=== PATIENT | female | born 1935 | race Caucasian/White ===

== ENCOUNTER 2018-06-12 14:09 | Inpatient (IN) | payer MEDICARE, OTHER ==
[~2018-06-12] VITALS: Ht 152.4 cm; Wt 81.6 kg
[~2018-06-12 14:09] MED LIST: ACET500T68 PO; AMMO1SOL2 MC; BETA15CR3 TP; BUDE3CAP15 PO; BUME1TAB3 PO; DICL100G18 TP; DIPH1TAB PO; ERGO500027 PO; ESTR30CR VG; FLUT16SP NS; HYDR30CR61 TP; LIDO700A39 TP; LORA10TA3 PO; MORP4SYR SL; MULT1TAB52 PO; NYST15PO9 TP; SERT50TA PO; SIME80TA14 PO; SPIR100T4 PO
[2018-06-12] MEDS: IV DEXTROSE 5% - 0.9 % NACL 1,000 ML IV SCH ×2 (15:45→22:34)
[2018-06-12 15:47] VITALS: BP 187/66
[2018-06-12] MEDS ORDERED: DICLOFENAC SODIUM 1% TOPICAL GEL 100GM TUBE. TP PRN (16:15)
[2018-06-12] MEDS ORDERED: TRIAMCINOLONE ACETONIDE 0.1% TOPICAL CREAM 15GM TUBE. TP SCH (16:15)
[2018-06-12] MEDS ORDERED: NYSTATIN TOPICAL POWDER 15GM BOTTLE. TP PRN (16:15)
[2018-06-12] MEDS ORDERED: LOPERAMIDE 2 MG CAPSULE PO PRN (16:15)
[2018-06-12] MEDS ORDERED: ACETAMINOPHEN 500 MG TABLET PO PRN (16:15)
[2018-06-12] MEDS ORDERED: VITS A & D/LANOLIN TOPICAL OINTMENT 56GM TUBE. TP PRN (16:30)
[2018-06-12 17:59] LABS: BASO % 0 % (0-3); EOS % 0 % (0-3); HEMATOCRIT 26.8 % (36.0-47.0); HEMOGLOBIN 8.3 g/dL (12.0-15.5); LYMPH # 1.1 x10^3/uL (1.0-4.8); LYMPH % 16 % (24-48); MEAN CORPUSCULAR HEMOGLOBIN 27 pg (25-35); MEAN CORPUSCULAR HGB CONC 31 g/dL (31-37); MEAN CORPUSCULAR VOLUME 88 fL (79-100); MONO # 0.3 x10^3/uL (0.0-1.1); MONO % 5 % (0-9); NEUT # 5.6 x10^3uL (1.8-7.7); NEUT % 79 % (31-73); PLATELET COUNT 161 x10^3/uL (140-400); RED BLOOD COUNT 3.06 x10^6/uL (3.50-5.40); RED CELL DISTRIBUTION WIDTH 25.8 % (11.5-14.5); WHITE BLOOD COUNT 7.1 x10^3/uL (4.0-11.0)
[2018-06-12] MEDS ORDERED: LINEZOLID 600 MG TABLET PO ONE (18:00)
[2018-06-12 18:13] LABS: ALBUMIN 2.7 g/dL (3.4-5.0); ALBUMIN/GLOBULIN RATIO 0.8 (1.0-1.7); CALCIUM 8.4 mg/dL (8.5-10.1); CREATININE 0.9 mg/dL (0.6-1.0); GFR 59.8; POTASSIUM 3.6 mmol/L (3.5-5.1); TOTAL BILIRUBIN 0.5 mg/dL (0.2-1.0)
[2018-06-12 18:22] LABS: PLT ESTIMATE ADEQUATE (ADEQUATE)
[2018-06-12 18:23] LABS: ANISOCYTOSIS MARKED; HYPOCHROMIA SLIGHT; POIKILOCYTOSIS SLIGHT; POLYCHROMASIA SLIGHT; TOXIC VACUOLATION SLIGHT
[2018-06-12] MEDS: RIVAROXABAN 15 MG TABLET. PO SCH (18:37)
[2018-06-12] MEDS ORDERED: cefTRIAXone IM 250 MG VIAL IM ONE (19:15)
[2018-06-12 19:38] VITALS: BP 128/62
[2018-06-12] MEDS ORDERED: cefTRIAXone IM 1 GM VIAL IM ONE (20:00)
[2018-06-12] MEDS ORDERED: AZITHROMYCIN 250 MG TABLET. PO ONE (20:30)
[2018-06-12] MEDS: metroNIDAZOLE 500 MG TABLET PO SCH (20:50)
[2018-06-12] MEDS: GABAPENTIN 300 MG CAPSULE. PO SCH (20:50)
[2018-06-12] MEDS: LACTOBACILLUS RHAMNOSUS GG 1 CAPSULE. PO SCH (20:50)
[2018-06-12] MEDS: ASCORBIC ACID 500 MG TABLET PO SCH ×2 (20:50→21:00)
[2018-06-12] MEDS: PATCH REMOVAL. MC SCH (20:51)
[2018-06-12] MEDS: HYDROCORTISONE SOD SUCC/PF 100 MG/2 ML VIAL. IV SCH (22:27)
[2018-06-12 23:21] VITALS: BP 102/60
[2018-06-12] MEDS: IV DEXTROSE 5% 1,000 ML IV SCH (23:24)
[2018-06-13 03:21] VITALS: BP_SYST 102; BP_SYST 154; BP_DIAS 57; BP_DIAS 58
[2018-06-13] MEDS: HYDROCORTISONE SOD SUCC/PF 100 MG/2 ML VIAL. IV SCH ×3 (05:43→20:49)
[2018-06-13] MEDS: metroNIDAZOLE 500 MG TABLET PO SCH (05:45)
[2018-06-13 07:00] VITALS: BP 136/61
[2018-06-13] MEDS ORDERED: IV DEXTROSE 5% 1,000 ML IV SCH (08:15)
[2018-06-13] MEDS ORDERED: FLUTICASONE 50MCG/NASAL SPRAY 16GM BOTTLE. NS PRN (08:15)
[2018-06-13] MEDS ORDERED: ONDANSETRON ODT 4 MG TAB.RAPDIS. PO PRN (08:15)
[2018-06-13] MEDS ORDERED: NYSTATIN 100,000 UNIT/GM TOPICAL CREAM 15GM TUBE. TP PRN (08:15)
[2018-06-13] MEDS ORDERED: TRIAMCINOLONE ACETONIDE 0.1% TOPICAL CREAM 15GM TUBE. TP PRN (08:15)
[2018-06-13] MEDS ORDERED: LOPERAMIDE 2 MG CAPSULE PO PRN (08:15)
[2018-06-13] MEDS ORDERED: ACETAMINOPHEN 500 MG TABLET PO PRN (08:15)
[2018-06-13] MEDS ORDERED: LACTOBACILLUS RHAMNOSUS GG 1 CAPSULE. PO SCH (09:00)
[2018-06-13] MEDS ORDERED: FLUTICASONE 50MCG/NASAL SPRAY 16GM BOTTLE. NS SCH (09:00)
[2018-06-13] MEDS: POLYETHYLENE GLYCOL 3350 17 GM PACKET. PO SCH ×2 (09:00→11:42)
[2018-06-13] MEDS ORDERED: CHOLECALCIFEROL (VITAMIN D3) 1,000 UNIT TABLET PO SCH (09:00)
[2018-06-13] MEDS ORDERED: POLYETHYLENE GLYCOL 3350 17 GM PACKET. PO SCH (09:00)
--- NOTE | 2018-06-13 10:09 | HP ---
ADMIT DATE: 06/12/2018 HISTORY OF PRESENT ILLNESS: The patient is an 83-year-old female patient who was transferred from [facility] where she was admitted recently with altered mental status, poor appetite, and markedly swollen upper extremities that are erythematous. She has a skin tear in the dorsal aspect of her hand also. She has also bilateral gluteal decubitus ulcer with marked skin laceration. She was actually admitted on 06/02/2018. At that time, she was diagnosed with bilateral lower extremity cellulitis, urinary tract infection and also questionable healthcare-associated pneumonia. She did eventually grew more than 100,000 colony forming units per mL of Proteus mirabilis that was sensitive to Levaquin. She was treated with oral Levaquin and initially she was on Zyvox and meropenem as SHE IS ALLERGIC TO PENICILLIN AND MULTIPLE OTHER ANTIBIOTICS and eventually she was discharged back to [facility] on 06/09/2018 to continue with oral antibiotic in the form of Levaquin and Zyvox. Unfortunately, she came back within 2 days with altered mental status, poor appetite and markedly swollen upper extremities, probably bilateral upper extremity cellulitis. She also has a skin tear on the dorsal aspect of her right hand and bilateral gluteal decubitus ulcer. We tried to put peripheral IV midline or PICC line and we could not really get any vascular access and therefore the patient was [facility] with the aim to consult the nutrition services worker to put a central line and to consult the Infectious Disease to assist with the management as well as the wound care team. PAST MEDICAL HISTORY: Significant for longstanding Crohn's disease, history of deep vein thrombosis and pulmonary embolism, depression, recurrent UTIs and degenerative joint disease. She is known to have L4 compression fracture and was at one time admitted to [facility] where she was not found to be suitable for vertebroplasty by the neurosurgeon as well as the interventional radiologist. She has a history of syncopal episodes for which she was admitted to [facility] and was found to be extremely dehydrated. On her last admission to [facility], she also went into acute hypoxic hypercapnic respiratory failure that required BiPAP from which she did actually very well. PAST SURGICAL HISTORY: Significant for appendectomy, cholecystectomy, partial colectomy, colonoscopy and biopsy. ALLERGIES: SHE IS ALLERGIC TO CIPRO, ASPIRIN, CEFDINIR, PENICILLIN, SULFA AND TRAMADOL. FAMILY HISTORY: Positive for hypertension and CVA in her mother and bone cancer in her father. SOCIAL HISTORY: She is currently a resident at [facility]. She has 2 sons, one of them lives here and the other lives in [place], [place]. She does not smoke, drink alcohol or use any recreational drugs. She is mostly bed bound and chair bound. She was transferred to [facility] to continue on following medications: She is on loratadine 10 mg once a day, spironolactone 100 mg once a day, diclofenac sodium topically every 6 hours, morphine sulfate 1-2 mg sublingually every 4 hours as needed, acetaminophen 650 mg every 6 hours, sertraline 50 mg daily, bumetanide half a tablet 0.5 mg twice a day, Flonase 2 sprays to each nostril once a day, diphenoxylate-atropine or Lomotil tablet q.i.d., simethicone 80 mg every 6 hours, Entocort 9 mg daily, conjugated estrogen Premarin vaginally 3 times per week, nystatin powder applied topically twice a day. She is on betamethasone, propylene glycol applied topically twice a day for itching, hydrocortisone for Anusol cream applied topically daily. She is on Lidoderm patch applied topically once a day, vitamin D 50,000 international units once a week, multivitamin 1 tablet once a day, ammonium lactate applied topically every 8 hours. PHYSICAL EXAMINATION: GENERAL: When I examined her this morning, she was resting slightly propped up in bed, in no apparent distress. She is awake, alert. Denied any complaint except that she is not doing very well. This could not be more specific. She was pale. No jaundice, cyanosis, or thyromegaly. No jugular venous distention. No lower limb edema. She has generalized anasarca, more so in her upper extremities than her lower extremities. VITAL SIGNS: Her heart rate was 84, blood pressure 154/58, temperature was 97.7, respiratory rate was 18 and oxygen saturation was 94% on 2 liters of oxygen. HEAD, EYES, EARS, NOSE AND THROAT: Showed she is normocephalic, atraumatic. NECK: Supple. HEART: Showed normal first and second heart sounds. No gallop, rub or murmur. CHEST: Shows central trachea, equal bilateral expansion, air entry. No crepitation or rhonchi. ABDOMEN: Distended, soft, nontender. NEUROLOGIC: She is awake, alert, responds at times appropriately. All her cranial nerves intact. Her both upper extremities are markedly swollen. She has skin tear on the dorsal aspect of the right hand. She is normally able to feed herself, but for the time being she is unable to do anything. She is mostly bedbound, chair bound. LABORATORY AND DIAGNOSTIC DATA: Her lab work this morning showed a serum sodium 140, potassium 3.6, chloride 100, bicarbonate 36, anion gap of 4, BUN 29, creatinine 0.9, estimated GFR was 59 mL per minute, her glucose 177, calcium was 8.4. Total bilirubin, AST, ALT, alkaline phosphatase are normal. Total protein was 6, albumin was 2.7. Her white cell count was 7100, hemoglobin 8.3, hematocrit 26.8, MCV 88 and platelet count of 161,000. ASSESSMENT: This is an 83-year-old female patient who was transferred from [facility] with: 1. Altered mental status. 2. Multiple wounds involving the skin tear of the dorsal aspect of her right hand and the bilateral gluteal decubitus ulcer. 3. The patient has severe protein-calorie malnutrition. Her serum albumin is only 2.7 g/dL. My plan is to consult as she has markedly swollen upper extremities compared to the lower extremities. Her cellulitis of the lower extremities has largely subsided. She did receive almost a 7-day course of Levaquin and Zyvox. I would consult Infectious Disease as well as the wound care team, dietitian and physical and occupational therapy. I will check her chest x-ray and arterial blood gases to make sure that she is not retaining carbon dioxide given her bicarbonate is 36. We will arrange for her to have a low air loss mattress and follow her closely. MAULIK MOROCHO MD DR: JAVID/cortez JOB#: [id number] / [id number]
[2018-06-13 11:00] VITALS: BP 153/70
--- NOTE | 2018-06-13 11:04 | RAD ---
EXAM: Chest, single view. HISTORY: Shortness of breath. COMPARISON: 06/10/2018. FINDINGS: A frontal view of the chest is obtained. There is stable diffuse increased interstitial opacity. There is stable suspected small pleural effusions. There is stable enlargement of the cardiac silhouette. There is no pneumothorax. There is a healed fracture of the proximal right humerus. IMPRESSION: 1. Stable diffuse increased interstitial opacity likely due to pulmonary congestion. 2. Stable suspected small pleural effusions. 3. Stable cardia megaly Electronically signed by: Jennifer Fairchild MD (06/13/2018 11:01 AM) [place] [id number]
[2018-06-13] MEDS: LIDOCAINE (700MG/PATCH) PATCH. TD SCH (11:26)
[2018-06-13] MEDS: ASCORBIC ACID 500 MG TABLET PO SCH (11:35)
[2018-06-13] MEDS: VITS A & D/LANOLIN TOPICAL OINTMENT 56GM TUBE. TP SCH ×2 (11:37→20:50)
--- NOTE | 2018-06-13 11:41 | PDOC ---
Infectious Disease Note Vital Sign Vital Signs Vital Signs Date Time Temp Pulse Resp B/P (MAP) Pulse Ox O2 Delivery O2 Flow Rate FiO2 06/13/18 11:00 98.2 82 18 153/70 (97) 98 Nasal Cannula 2.0 98.2 Labs Lab Laboratory Tests Test 06/12/18 17:45 White Blood Count 7.1 x10^3/uL (4.0-11.0) Red Blood Count 3.06 x10^6/uL (3.50-5.40) Hemoglobin 8.3 g/dL (12.0-15.5) Hematocrit 26.8 % (36.0-47.0) Mean Corpuscular Volume 88 fL (79-100) Mean Corpuscular Hemoglobin 27 pg (25-35) Mean Corpuscular Hemoglobin Concent 31 g/dL (31-37) Red Cell Distribution Width 25.8 % (11.5-14.5) Platelet Count 161 x10^3/uL (140-400) Neutrophils (%) (Auto) 79 % (31-73) Lymphocytes (%) (Auto) 16 % (24-48) Monocytes (%) (Auto) 5 % (0-9) Eosinophils (%) (Auto) 0 % (0-3) Basophils (%) (Auto) 0 % (0-3) Neutrophils # (Auto) 5.6 x10^3uL (1.8-7.7) Lymphocytes # (Auto) 1.1 x10^3/uL (1.0-4.8) Monocytes # (Auto) 0.3 x10^3/uL (0.0-1.1) Eosinophils # (Auto) 0.0 x10^3/uL (0.0-0.7) Basophils # (Auto) 0.0 x10^3/uL (0.0-0.2) Toxic Vacuolation Slight Platelet Estimate Adequate (ADEQUATE) Polychromasia Slight Hypochromasia Slight Poikilocytosis Slight Anisocytosis Marked Sodium Level 140 mmol/L (136-145) Potassium Level 3.6 mmol/L (3.5-5.1) Chloride Level 100 mmol/L (98-107) Carbon Dioxide Level 36 mmol/L (21-32) Anion Gap 4 (6-14) Blood Urea Nitrogen 29 mg/dL (7-20) Creatinine 0.9 mg/dL (0.6-1.0) Estimated GFR (Cockcroft-Gault) 59.8 BUN/Creatinine Ratio 32 (6-20) Glucose Level 177 mg/dL (70-99) Calcium Level 8.4 mg/dL (8.5-10.1) Total Bilirubin 0.5 mg/dL (0.2-1.0) Aspartate Amino Transf (AST/SGOT) 17 U/L (15-37) Alanine Aminotransferase (ALT/SGPT) 23 U/L (14-59) Alkaline Phosphatase 89 U/L (46-116) Total Protein 6.0 g/dL (6.4-8.2) Albumin 2.7 g/dL (3.4-5.0) Albumin/Globulin Ratio 0.8 (1.0-1.7) Objective Assessment Magdaleno upper ext redness from multiple iv attempts , sec infection also possible Debility and self care problem Encephalopathy, improved Minor skin breakdowns Recent UTI/Pneumonia/cellulitis Plan Plan of Care cipro and zyvox po will d/w family about her concern of too much pocking , either to do palliative or get port/power picc for blood draws and meds d/w dr Xavier CAVAZOS,TOM Parker MD Jun 13, 2018 11:41
[2018-06-13] MEDS: PANTOPRAZOLE 40 MG TABLET.DR. PO SCH (11:42)
[2018-06-13] MEDS: MULTIVITAMIN with MINERAL TABLET. PO SCH (11:43)
[2018-06-13] MEDS: LACTOBACILLUS RHAMNOSUS GG 1 CAPSULE. PO SCH ×2 (11:43→20:48)
--- NOTE | 2018-06-13 12:27 | NUR ---
SW following pt for anticipated dc needs. Chart reviewed and COLUMBA RN. MARVEL confirmed with Mel at [place], phone: [phone], fax: [phone], pt is LTC resident and plan of return upon dc. SW will continue to follow.
[2018-06-13] MEDS ORDERED: CIPROFLOXACIN HCL 250 MG TABLET. PO SCH (12:30)
[2018-06-13] MEDS: IV DEXTROSE 5% 1,000 ML IV SCH (12:50)
[2018-06-13] MEDS: LINEZOLID 600 MG TABLET PO SCH ×2 (12:53→20:49)
[2018-06-13] MEDS: ONDANSETRON ODT 4 MG TAB.RAPDIS. PO PRN (13:28)
[2018-06-13] MEDS ORDERED: HYDROCORTISONE SOD SUCC/PF 100 MG/2 ML VIAL. IV SCH (14:00)
[2018-06-13 14:41] VITALS: BP 144/52
[2018-06-13] MEDS ORDERED: SODIUM CHL/ALOE VERA NASAL GEL 14.1GM TUBE. NS PRN (16:00)
--- NOTE | 2018-06-13 16:19 | NUR ---
Wound Care Wound care consult for multiple wounds. Skin tears dressed with Xeroform and foam pads and vitamin A&D ointment applied to bilateral buttocks. Foam placed on left heel for protection, PU is resolved. Bilateral arms are edematous and bruised. Pt turned to left side with wedge and heels floated on bed. Pt on P500 bed. No other wounds noted at this time. Pt educated on PU prevention. WC will continue to follow for possible changes.
[2018-06-13] MEDS: RIVAROXABAN 15 MG TABLET. PO SCH (16:50)
[2018-06-13] MEDS ORDERED: RIVAROXABAN 15 MG TABLET. PO SCH (17:00)
[2018-06-13 19:15] VITALS: BP 132/54
[2018-06-13] MEDS: GABAPENTIN 300 MG CAPSULE. PO SCH (20:49)
[2018-06-13] MEDS: PATCH REMOVAL. MC SCH (21:00)
[2018-06-13] MEDS ORDERED: GABAPENTIN 300 MG CAPSULE. PO SCH (21:00)
--- NOTE | 2018-06-13 23:17 | CONS ---
DATE OF CONSULTATION: 06/13/2018 REQUESTING PHYSICIAN: Uriel Park MD REASON FOR CONSULTATION: Upper extremity swelling and redness and need for antibiotics. HISTORY OF PRESENT ILLNESS: This is an 83-year-old female who is from a nursing facility who was transferred from [facility]. The patient had a recent admission on 06/02 there with bilateral lower extremity cellulitis and UTI and possible pneumonia. The patient was treated and discharged and the patient returned with altered mental status and upper extremity swelling and redness. The patient had not been to responsive initially, but now she is alert, awake, appropriate. When I talked to her, she says she is not doing well and on further questioning, she said she is tired of people poking her. The patient denies any other pain. Denies any nausea, vomiting, diarrhea. Denies any shortness of breath. No other complaints. The patient has multiple bruises and hematomas in the upper extremity with surrounding redness and swelling. The patient does have a very thin skin with a skin tear in the multiple areas also. PAST MEDICAL HISTORY: Positive for Crohn disease, pulmonary embolism, deep venous thrombosis, depression, recurrent UTI, compression fracture, has had cholecystectomy, appendicectomy, partial colectomy. SOCIAL HISTORY: Negative for smoking, alcohol or illicit drug use. The [facility] is a [facility]. ALLERGIES: SHE IS LISTED ALLERGIC TO CIPRO, ASPIRIN, CEFDINIR, PENICILLIN, SULFA AND TRAMADOL. REVIEW OF SYSTEMS: As per HPI, all other systems reviewed are negative. PHYSICAL EXAMINATION: GENERAL: Alert, oriented female, not in distress. VITAL SIGNS: Stable. T-max 99.1. HEENT: NAD. NECK: Supple, no JVP, no lymphadenopathy. LUNGS: Clear. HEART: S1, S2 regular. ABDOMEN: Benign. EXTREMITIES: The patient does have anasarca. The patient also has multiple skin bruising and skin tear in the upper extremity. A large skin tear and multiple bruises and surrounding erythema present. Also, decubs are minor. Other than skin excoriation, there is no deep wound. NEUROLOGIC: The patient is alert, awake, able to communicate properly and wants me to help her with no poking, she calls it. LABORATORY DATA: White count 7.1, hemoglobin 8.3, platelets are 161,000. BUN and creatinine are 29 and 0.9. IMPRESSION: 1. Encephalopathy, which has improved. 2. Upper extremity redness and swelling from either IV and/or blood, the venipuncture with hematoma, bruising and it may have even secondary infection. It is hard to say. 3. Debility and self-care problem. 4. Recent cellulitis, recent pneumonia, and recent urinary tract infection. RECOMMENDATIONS: I would use Zyvox and Levaquin since "she is ALLERGIC TO CIPRO." We will discuss with the family about the concern of what she has brought up and depending on the family's wishes whether the palliative care and not do too much of any puncture and/or IV and/or if they want more aggressive care, then the port or PowerPICC for blood draws and meds should be done. Discussion with Dr. Park done. Thank you very much, Dr. Park, for giving me the opportunity to participate in this patient's care. TOM CAVAZOS MD DR: SABRA/cortez JOB#: [id number] / [id number]
[2018-06-13 23:20] VITALS: BP 133/55
[2018-06-14] MEDS: IV DEXTROSE 5% 1,000 ML IV SCH ×2 (02:39→16:22)
[2018-06-14 03:30] VITALS: BP 147/64
[2018-06-14] MEDS: HYDROCORTISONE SOD SUCC/PF 100 MG/2 ML VIAL. IV SCH ×3 (05:09→21:14)
[2018-06-14 07:15] VITALS: BP 127/55
[2018-06-14] MEDS: PANTOPRAZOLE 40 MG TABLET.DR. PO SCH (07:30)
[2018-06-14] MEDS ORDERED: PANTOPRAZOLE 40 MG TABLET.DR. PO SCH (07:30)
[2018-06-14] MEDS: LIDOCAINE (700MG/PATCH) PATCH. TD SCH ×2 (09:00→10:02)
[2018-06-14] MEDS: POLYETHYLENE GLYCOL 3350 17 GM PACKET. PO SCH (09:00)
[2018-06-14] MEDS: VITS A & D/LANOLIN TOPICAL OINTMENT 56GM TUBE. TP SCH ×2 (09:00→21:16)
[2018-06-14] MEDS: LACTOBACILLUS RHAMNOSUS GG 1 CAPSULE. PO SCH ×2 (09:54→21:11)
[2018-06-14] MEDS: LINEZOLID 600 MG TABLET PO SCH ×2 (09:54→21:12)
[2018-06-14] MEDS: ASCORBIC ACID 500 MG TABLET PO SCH (09:58)
[2018-06-14] MEDS: MULTIVITAMIN with MINERAL TABLET. PO SCH (09:59)
[2018-06-14 11:15] VITALS: BP 120/61
--- NOTE | 2018-06-14 12:28 | PDOC ---
Infectious Disease Note Subjective Subjective feeling ok says ROS ROS no n/v/d/sob/fever Vital Sign Vital Signs Vital Signs Date Time Temp Pulse Resp B/P (MAP) Pulse Ox O2 Delivery O2 Flow Rate FiO2 06/14/18 11:15 97.3 79 18 120/61 (80) 95 Nasal Cannula 2.0 97.3 Physical Exam PHYSICAL EXAM GENERAL: Alert, oriented female, not in distress. VITAL SIGNS: Stable. HEENT: NAD. NECK: Supple, no JVP, no lymphadenopathy. LUNGS: Clear. HEART: S1, S2 regular. ABDOMEN: Benign. EXTREMITIES: The patient does have anasarca. The patient also has multiple skin bruising and skin tear in the upper extremity. A large skin tear and multiple bruises and surrounding erythema present. Also, decubs are minor. Other than skin excoriation, there is no deep wound. NEUROLOGIC: The patient is alert, awake, able to communicate properly and wants me to help her with no poking, she calls it. Objective Assessment Magdaleno upper ext redness from multiple iv attempts , sec infection also possible Debility and self care problem Encephalopathy, improved Minor skin breakdowns Recent UTI/Pneumonia/cellulitis Plan Plan of Care Levaquin and zyvox po will d/w family about her concern of too much pocking , either to do palliative or get port/power picc for blood draws and meds d/w dr Xavier hurtado are looking better waiting to talk to TOM Bass MD Jun 14, 2018 12:28
[2018-06-14] MEDS: MULTIVITAMIN I-VITE TABLET. PO SCH (14:00)
[2018-06-14] MEDS ORDERED: LIDOCAINE 1%/EPI 1:100,000 20 ML VIAL. ONE (15:02)
[2018-06-14] MEDS ORDERED: HEPARIN PF 500 UNIT/5 ML DISP.SYRIN. IV ONE ×2 (15:05→15:30)
[2018-06-14] MEDS ORDERED: LIDOCAINE 1% Multi-Dose 20 ML VIAL. INJ ONE (15:30)
[2018-06-14] MEDS: RIVAROXABAN 15 MG TABLET. PO SCH (17:19)
[2018-06-14] MEDS: PATCH REMOVAL. MC SCH (19:10)
[2018-06-14 19:50] VITALS: BP 143/67
--- NOTE | 2018-06-14 20:35 | PN ---
DATE: 06/14/2018 SUBJECTIVE: The patient is resting, slightly propped up in bed, in no apparent respiratory distress. She is definitely more awake, alert, responding appropriately. She was very confused and disoriented yesterday. The upper extremity swelling is much less. She is now able to move at least the left upper extremity and she is eating a little bit more. When I examined her, she looked well and was clearly in no apparent respiratory distress. No pallor, jaundice, cyanosis, or thyromegaly. No jugular venous distension. No lower limb edema. PHYSICAL EXAMINATION: VITAL SIGNS: His heart rate was 86, blood pressure 127/55, temperature was 97.9, respiratory rate was 18 and oxygen saturation was 96% on 2 liters of oxygen. HEAD, EYES, EARS, NOSE AND THROAT: Showed normocephalic, atraumatic. NECK: Supple. HEART: Showed normal first and second sounds. No gallop, rub or murmur. CHEST: Clear to auscultation. No crepitation or rhonchi. ABDOMEN: Distended, soft, nontender. No guarding or rigidity. No organomegaly. Hernial orifice intact. Bowel sounds normal. NEUROLOGIC: She is definitely more awake, alert. All her cranial nerves intact. She moves upper extremities to much greater extent than her lower extremities. The swelling in her upper extremities is improving, although has not yet completely resolved. ASSESSMENT: 1. Encephalopathy, multifactorial, resolved. 2. Multiple wounds on the dorsal aspect of her right hand and left hand as well as bilateral gluteal decubitus ulcer. 3. Severe protein calorie malnutrition, serum albumin is only 2.7 g/dL. 4. Crohn's disease. 5. Deep vein thrombosis and pulmonary embolism. 6. Recurrent UTIs. 7. Depression. 8. Degenerative disk disease as well as L4 compression fracture. PLAN: To continue with the current management in the form of oral levofloxacin as well as linezolid. Continue with wound care, nutritional support. MAULIK MOROCHO MD DR: JAVID/cortez JOB#: [id number] / [id number]
[2018-06-14] MEDS: GABAPENTIN 300 MG CAPSULE. PO SCH (21:11)
[2018-06-14 23:55] VITALS: BP 138/67
[2018-06-15 03:52] VITALS: BP 149/57
[2018-06-15] MEDS: IV DEXTROSE 5% 1,000 ML IV SCH ×2 (04:53→20:29)
[2018-06-15] MEDS: HYDROCORTISONE SOD SUCC/PF 100 MG/2 ML VIAL. IV SCH ×3 (05:00→22:22)
[2018-06-15 07:25] VITALS: BP 142/58
[2018-06-15] MEDS: POLYETHYLENE GLYCOL 3350 17 GM PACKET. PO SCH (08:52)
[2018-06-15] MEDS: MULTIVITAMIN with MINERAL TABLET. PO SCH (08:53)
[2018-06-15] MEDS: LINEZOLID 600 MG TABLET PO SCH ×2 (08:53→20:30)
[2018-06-15] MEDS: LIDOCAINE (700MG/PATCH) PATCH. TD SCH (08:53)
[2018-06-15] MEDS: ASCORBIC ACID 500 MG TABLET PO SCH (08:53)
[2018-06-15] MEDS: LACTOBACILLUS RHAMNOSUS GG 1 CAPSULE. PO SCH ×2 (08:53→20:30)
[2018-06-15] MEDS: PANTOPRAZOLE 40 MG TABLET.DR. PO SCH (08:53)
[2018-06-15] MEDS: VITS A & D/LANOLIN TOPICAL OINTMENT 56GM TUBE. TP SCH ×2 (09:00→20:34)
[2018-06-15] MEDS: MULTIVITAMIN I-VITE TABLET. PO SCH (09:00)
[2018-06-15 10:51] VITALS: BP 146/63
--- NOTE | 2018-06-15 11:24 | PDOC ---
Infectious Disease Note Subjective Subjective feeling ok says ROS ROS no n/v/d/sob/fever Vital Sign Vital Signs Vital Signs Date Time Temp Pulse Resp B/P (MAP) Pulse Ox O2 Delivery O2 Flow Rate FiO2 06/15/18 10:51 97.5 75 20 146/63 (90) 97 Nasal Cannula 2.0 97.5 Physical Exam PHYSICAL EXAM GENERAL: Alert, oriented female, not in distress. VITAL SIGNS: Stable. HEENT: NAD. NECK: Supple, no JVP, no lymphadenopathy. LUNGS: Clear. HEART: S1, S2 regular. ABDOMEN: Benign. EXTREMITIES: The patient does have anasarca. The patient also has multiple skin bruising and skin tear in the upper extremity. A large skin tear and multiple bruises and surrounding erythema present. Also, decubs are minor. Other than skin excoriation, there is no deep wound. NEUROLOGIC: The patient is alert, awake, able to communicate properly and wants me to help her with no poking, she calls it. Objective Assessment Magdaleno upper ext redness from multiple iv attempts , sec infection also possible Debility and self care problem Encephalopathy, improved Minor skin breakdowns Recent UTI/Pneumonia/cellulitis Plan Plan of Care Levaquin and zyvox po for 5 more days power picc in place, pt can be d/tacho infection risk was explained to son CAVAZOSTOM MD Jun 15, 2018 11:24
--- NOTE | 2018-06-15 11:28 | RAD ---
Procedure: Ultrasound and fluoroscopically guided placement of tunnel central venous catheter. 06/15/2018 11:24 AM Clinical Indication: Need for long-term central venous access Sedation: Conscious sedation was administered for 25 minutes. The patient was monitored by a qualified independent observer throughout the time of sedation. Please refer to the medical record for exact doses of medications utilized to achieve moderate sedation. Fluoroscopy time: 0.2 MIN Dose area product: 3 Gycm2 Consent: The procedure was explained in its entirety to the patient or the patients designated labor service representative by a member of the treatment team, including a discussion of the risks, benefits and commonly accepted alternatives to the procedure, as well as the expected consequences of no therapy whatsoever. Discussion of the risks included, but was not limited to, those that are most frequent and those that are rare but possibly severe or life-threatening, as well as the possibility of unforeseen complications. Sterility: All elements of maximal sterile barrier technique including the use of a cap, mask, sterile gown, sterile gloves, large sterile sheet, appropriate hand hygiene, and 2% chlorhexidine for cutaneous antisepsis (or acceptable alternative antiseptic per current guidelines) were followed for this procedure. Technique and Findings: Following informed consent, the patient was prepped and draped in the usual sterile fashion. Ultrasound interrogation of the right neck revealed patency and compressibility of the right internal jugular vein. A 21-gauge micropuncture was then used to gain access to this vein under ultrasound guidance. A hard copy ultrasound image was recorded. The needle was exchanged over a wire for a sheath. A small incision was made several centimeters inferior to the right clavicle. A power line was trimmed to length, advanced from the small skin incision to the venotomy site, and then advanced through a peel-away sheath to the level of the cavoatrial junction. Catheter was found to flush and aspirate normally. Catheter was secured in place with 2-0 Prolene suture and a sterile dressing was applied. Catheter was packed with heparin per protocol. The neck dermatotomy was closed with Dermabond. No immediate complications were identified. Impression: Successful ultrasound and fluoroscopically guided placement of a right internal jugular tunneled central venous catheter
[2018-06-15] MEDS ORDERED: ANTI-COAG MONITOR BY PHARMACY. MC PRN (11:30)
[2018-06-15] MEDS: ONDANSETRON ODT 4 MG TAB.RAPDIS. PO PRN (14:50)
[2018-06-15 14:52] VITALS: BP 144/54
[2018-06-15] MEDS: RIVAROXABAN 15 MG TABLET. PO SCH (17:00)
[2018-06-15 19:55] VITALS: BP 161/52
[2018-06-15] MEDS: GABAPENTIN 300 MG CAPSULE. PO SCH (20:30)
[2018-06-15] MEDS: PATCH REMOVAL. MC SCH (20:34)
--- NOTE | 2018-06-15 21:25 | PN ---
DATE: 06/15/2018 SUBJECTIVE: The patient is resting slightly propped up in bed, no apparent distress. Awake, alert. Apparently she has had a tunneled PICC line done successfully by interventional radiologist yesterday. PHYSICAL EXAMINATION: GENERAL: When I examined her, she looked pale, but no jaundice, cyanosis, or thyromegaly. No jugular venous distension. No lower limb edema. VITAL SIGNS: Her heart rate was 76, blood pressure was 145/58, temperature was 98.93, respiratory rate was 18 and oxygen saturation was 99% on 2 liters of oxygen. HEAD, EYES, EARS, NOSE AND THROAT: Showed normocephalic, atraumatic. NECK: Supple. HEART: Showed normal first and second heart sounds. No gallop, rub or murmur. CHEST: Clear to auscultation. No crepitation or rhonchi. ABDOMEN: Distended, soft, tender. NEUROLOGIC: She was definitely more awake, alert. She is mostly bed bound. EXTREMITIES: Swelling of her upper extremities is much less. Her intake was 300, output was 1450. LABORATORY DATA: Her most recent lab work showed a white cell count 7100, hemoglobin 8, hematocrit 27, MCV 88 and platelet count of 161,000. Her chemistry showed a serum sodium 140, potassium 3.6, chloride 100, bicarbonate 36, anion gap of 4, BUN 29, creatinine 0.9, estimated GFR was 59 mL per minute. Her glucose was 77, calcium was 8.4. Total bilirubin, AST, ALT, alkaline phosphatase were normal. Total protein was 6.9, albumin was 2.7. ASSESSMENT: 1. Encephalopathy, multifactorial, resolving. 2. Multiple wounds in dorsal aspect of the right and left hand as well as bilateral gluteal decubitus ulcer. 3. Severe protein calorie malnutrition, serum albumin is only 2.7 g/dL. 4. Crohn's disease. 5. Deep vein thrombosis and pulmonary embolism, on Xarelto. 6. Recurrent urinary tract infection. 7. Depression. 8. Degenerative disk disease as well as L4 compression fracture. PLAN: To continue with oral antibiotic. Continue nutritional support. Continue with wound care. MAULIK MOROCHO MD DR: JAVID/cortez JOB#: [id number] / [id number]
[2018-06-15 23:35] VITALS: BP 135/42
[2018-06-16 03:15] VITALS: BP 139/55
[2018-06-16] MEDS: HYDROCORTISONE SOD SUCC/PF 100 MG/2 ML VIAL. IV SCH (05:51)
[2018-06-16 06:42] LABS: BASO % 0 % (0-3); EOS % 0 % (0-3); HEMATOCRIT 27.3 % (36.0-47.0); HEMOGLOBIN 8.5 g/dL (12.0-15.5); LYMPH # 0.7 x10^3/uL (1.0-4.8); LYMPH % 10 % (24-48); MEAN CORPUSCULAR HEMOGLOBIN 27 pg (25-35); MEAN CORPUSCULAR HGB CONC 31 g/dL (31-37); MEAN CORPUSCULAR VOLUME 88 fL (79-100); MONO # 0.4 x10^3/uL (0.0-1.1); MONO % 5 % (0-9); NEUT # 6.7 x10^3uL (1.8-7.7); NEUT % 86 % (31-73); PLATELET COUNT 117 x10^3/uL (140-400); RED BLOOD COUNT 3.12 x10^6/uL (3.50-5.40); RED CELL DISTRIBUTION WIDTH 25.3 % (11.5-14.5); WHITE BLOOD COUNT 7.8 x10^3/uL (4.0-11.0)
[2018-06-16 06:51] LABS: ALBUMIN 2.6 g/dL (3.4-5.0); ALBUMIN/GLOBULIN RATIO 0.9 (1.0-1.7); CALCIUM 8.4 mg/dL (8.5-10.1); CREATININE 0.9 mg/dL (0.6-1.0); GFR 59.8; POTASSIUM 3.7 mmol/L (3.5-5.1); TOTAL BILIRUBIN 0.3 mg/dL (0.2-1.0); TOTAL PROTEIN 5.5 g/dL (6.4-8.2)
[2018-06-16 07:30] VITALS: BP 103/37
[2018-06-16] MEDS ORDERED: LEVO500T59 PO (07:58)
[2018-06-16] MEDS ORDERED: LINE600T PO (07:58)
[2018-06-16] MEDS ORDERED: RIVA15TA PO (08:07)
[2018-06-16] MEDS ORDERED: BUDE3CAP15 PO (08:07)
[2018-06-16] MEDS ORDERED: LACT1WAF PO (08:07)
[2018-06-16] MEDS ORDERED: MULT1TAB52 PO (08:07)
[2018-06-16] MEDS ORDERED: PANT20TA2 PO (08:07)
[2018-06-16] MEDS ORDERED: GABA300C18 PO (08:07)
[2018-06-16] MEDS ORDERED: ASCO500C9 PO (08:07)
[2018-06-16] MEDS ORDERED: FLUT9.9S NS (08:07)
[2018-06-16] MEDS ORDERED: POLY17PO29 PO (08:07)
[2018-06-16] MEDS ORDERED: CHOL500021 PO (08:07)
--- NOTE | 2018-06-16 08:08 | DISCH ---
DISCHARGE DISCHARGE INFORMATION: CONDITION ON DISCHARGE: Stable CODE STATUS: Code Status: DNR/DNI LONG TERM: SNF STAY <30 DAYS: No POST DISCHARGE ORDERS: ACTIVITY ORDERS: Activity as tolerated WEIGHT BEARING STATUS: No restrictions BATHING ORDERS: Shower-keep dressing dry DIET AFTER DISCHARGE: Regular WOUND/INCISION CARE: Change dressing TREATMENT/EQUIPMENT ORDERS: ADAPTIVE EQUIPMENT NEEDED: None Physical Therapy For: Evalulation/Treatment Occupational Therapy For: Evaluation/Treatment DISCHARGE MEDICATIONS: Home Meds Active Scripts Rivaroxaban (XARELTO) 15 Mg Tablet, 15 MG PO DAILY for dvt for 30 Days, #30 TAB Prov:MAULIK MOROCHO MD 06/16/18 Lactobacillus Acidophilus (ACIDOPHILUS LACTOBACILLUS) 1 Mg Wafer, 1 MG PO BID for probiotics for 30 Days, #60 WAFER Prov:MAULIK MOROCHO MD 06/16/18 Gabapentin (NEURONTIN ) 300 Mg Capsule, 300 MG PO QHS for NEUROGENIC PAIN for 30 Days, #30 CAP 5 Refills Prov:MAULIK MOROCHO MD 06/16/18 Budesonide (ENTOCORT EC) 3 Mg Capdr...er, 3 CAP PO DAILY for crohn disease for 30 Days, #90 CAP 2 Refills Prov:MAULIK MOROCHO MD 06/16/18 Multivitamin (MULTIVITAMINS) 1 Each Tablet, 1 TAB PO DAILY for iron for 30 Days , #30 TAB 3 Refills Prov:MAULIK MOROCHO MD 06/16/18 Pantoprazole Sodium (PROTONIX) 20 Mg Tablet.dr, 40 MG PO DAILY for dyspepsia for 30 Days, #60 TAB Prov:MAULIK MOROCHO MD 06/16/18 Fluticasone Propionate (Flonase Allergy Relief) 9.9 Ml [place].susp, 2 SPRAYS NS DAILY for allergy for 30 Days, #1 BOTTLE 5 Refills Prov:MAULIK MOROCHO MD 06/16/18 Polyethylene Glycol 3350 (MIRALAX) 17 Gm Powd.pack, 1 PACKET PO DAILY for constipation, #30 PACKET 3 Refills Prov:MAULIK MOROCHO MD 06/16/18 Ascorbic Acid (Vitamin C) 500 Mg Capsule, 500 MG PO DAILY for iron for 30 Days, #30 CAP Prov:MAULIK MOROCHO MD 06/16/18 Cholecalciferol (Vitamin D3) (D3-50) 50,000 Unit Capsule, 1 CAP PO WEEKLY for hypocalcemia, #12 CAP Prov:MAULIK MOROCHO MD 06/16/18 Linezolid (ZYVOX) 600 Mg Tablet, 600 MG PO BID PRN for ellulitis for 5 Days, # 10 TAB Prov:MAULIK MOROCHO MD 06/16/18 Levofloxacin (LEVAQUIN) 500 Mg Tablet, 1 TAB PO DAILY for uti for 5 Days, #5 TAB Prov:MAULIK MOROCHO MD 06/16/18 Reported Medications Lidocaine (Lidocaine) 1 Each Adh..patch, 1 EACH TP DAILY, PATCH 05/13/17 Multivitamin (MULTIVITAMINS) 1 Each Tablet, 1 TAB PO DAILY, #90 TAB 3 Refills 05/13/17 Diclofenac Sodium (VOLTAREN) 100 Gm Gel..gram., 1 GM TP PRN Q6HRS PRN for PAIN, #100 GM 2 Refills 05/13/17 Nystatin (NYSTATIN) 15 Gm Powder, 1 SRIDEVI TP PRN BID PRN for REDNESS, #1 BOTTLE 05/13/17 Discontinued Reported Medications Bumetanide (BUMETANIDE) 1 Mg Tablet, 0.5 TAB PO BID, #90 TAB 1 Refill 05/13/17 Estrogens, Conjugated (PREMARIN) 30 Gm Cream.appl, 1 SRIDEVI VG Three times a week, EACH 05/13/17 Simethicone (SIMETHICONE) 80 Mg Tab.chew, 80 MG PO PRN Q6HRS PRN for GAS / BLOATING, TAB.CHEW 05/13/17 Fluticasone Propionate (FLUTICASONE PROPIONATE NASAL SPRAY) 16 Gm [place].susp, 2 SPRAY NS DAILY, #1 INHALER 11 Refills 05/13/17 Diphenoxylate Hcl/Atropine (LOMOTIL TABLET) 1 Each Tablet, 1 TAB PO QID, #20 TAB 05/13/17 Acetaminophen (ACETAMINOPHEN) 500 Mg Tablet, 650 MG PO PRN Q6HRS PRN for MILD PAIN / TEMP, TAB 05/13/17 MAULIK MOROCHO MD Jun 16, 2018 08:08
--- NOTE | 2018-06-16 08:12 | NUR ---
MARVEL following pt. MARVEL phoned and faxed updates to [place]. Will continue to follow.
[2018-06-16] MEDS: MULTIVITAMIN I-VITE TABLET. PO SCH (09:00)
[2018-06-16] MEDS: LIDOCAINE (700MG/PATCH) PATCH. TD SCH (09:00)
[2018-06-16] MEDS: POLYETHYLENE GLYCOL 3350 17 GM PACKET. PO SCH (09:00)
[2018-06-16] MEDS: VITS A & D/LANOLIN TOPICAL OINTMENT 56GM TUBE. TP SCH (09:48)
[2018-06-16] MEDS: ASCORBIC ACID 500 MG TABLET PO SCH (09:48)
[2018-06-16] MEDS: PANTOPRAZOLE 40 MG TABLET.DR. PO SCH (09:48)
[2018-06-16] MEDS: MULTIVITAMIN with MINERAL TABLET. PO SCH (09:48)
[2018-06-16] MEDS: LACTOBACILLUS RHAMNOSUS GG 1 CAPSULE. PO SCH (09:48)
[2018-06-16] MEDS: LINEZOLID 600 MG TABLET PO SCH (09:49)
--- NOTE | 2018-06-16 10:33 | NUR ---
MARVEL following. MARVEL phoned and faxed orders to [facility]. Awaiting transport time. Addendum: 06/16/18 at 1231 by COLLEEN GRIER Pt will transport via facility arranged transport at 1300. Pt's son, Teddy notified of dc plan. Packet on chart.
--- NOTE | 2018-06-16 11:11 | PDOC ---
Infectious Disease Note Subjective Subjective feeling ok says POLA ESCALONA no n/v/d/sob Vital Sign Vital Signs Vital Signs Date Time Temp Pulse Resp B/P (MAP) Pulse Ox O2 Delivery O2 Flow Rate FiO2 06/16/18 07:30 97.6 79 20 103/37 (59) 99 Nasal Cannula 2.0 97.6 Physical Exam PHYSICAL EXAM GENERAL: Alert, oriented female, not in distress. VITAL SIGNS: Stable. HEENT: NAD. NECK: Supple, no JVP, no lymphadenopathy. LUNGS: Clear. HEART: S1, S2 regular. ABDOMEN: Benign. EXTREMITIES: The patient does have anasarca. The patient also has multiple skin bruising and skin tear in the upper extremity. A large skin tear and multiple bruises and surrounding erythema present. Also, decubs are minor. Other than skin excoriation, there is no deep wound. NEUROLOGIC: The patient is alert, awake, able to communicate properly and wants me to help her with no poking, she calls it. Labs Lab Laboratory Tests Test 06/16/18 06:15 White Blood Count 7.8 x10^3/uL (4.0-11.0) Red Blood Count 3.12 x10^6/uL (3.50-5.40) Hemoglobin 8.5 g/dL (12.0-15.5) Hematocrit 27.3 % (36.0-47.0) Mean Corpuscular Volume 88 fL (79-100) Mean Corpuscular Hemoglobin 27 pg (25-35) Mean Corpuscular Hemoglobin Concent 31 g/dL (31-37) Red Cell Distribution Width 25.3 % (11.5-14.5) Platelet Count 117 x10^3/uL (140-400) Neutrophils (%) (Auto) 86 % (31-73) Lymphocytes (%) (Auto) 10 % (24-48) Monocytes (%) (Auto) 5 % (0-9) Eosinophils (%) (Auto) 0 % (0-3) Basophils (%) (Auto) 0 % (0-3) Neutrophils # (Auto) 6.7 x10^3uL (1.8-7.7) Lymphocytes # (Auto) 0.7 x10^3/uL (1.0-4.8) Monocytes # (Auto) 0.4 x10^3/uL (0.0-1.1) Eosinophils # (Auto) 0.0 x10^3/uL (0.0-0.7) Basophils # (Auto) 0.0 x10^3/uL (0.0-0.2) Sodium Level 136 mmol/L (136-145) Potassium Level 3.7 mmol/L (3.5-5.1) Chloride Level 95 mmol/L (98-107) Carbon Dioxide Level 36 mmol/L (21-32) Anion Gap 5 (6-14) Blood Urea Nitrogen 17 mg/dL (7-20) Creatinine 0.9 mg/dL (0.6-1.0) Estimated GFR (Cockcroft-Gault) 59.8 BUN/Creatinine Ratio 19 (6-20) Glucose Level 208 mg/dL (70-99) Calcium Level 8.4 mg/dL (8.5-10.1) Total Bilirubin 0.3 mg/dL (0.2-1.0) Aspartate Amino Transf (AST/SGOT) 12 U/L (15-37) Alanine Aminotransferase (ALT/SGPT) 20 U/L (14-59) Alkaline Phosphatase 85 U/L (46-116) Total Protein 5.5 g/dL (6.4-8.2) Albumin 2.6 g/dL (3.4-5.0) Albumin/Globulin Ratio 0.9 (1.0-1.7) Objective Assessment Magdaleno upper ext redness from multiple iv attempts , sec infection also possible Debility and self care problem Encephalopathy, improved Minor skin breakdowns Recent UTI/Pneumonia/cellulitis Plan Plan of Care Levaquin and zyvox po for 5 total days power picc in place, pt can be d/tacho infection risk was explained to TOM Chan MD Jun 16, 2018 11:11
[2018-06-16 11:30] VITALS: BP 137/57
--- NOTE | 2018-06-16 11:45 | DS ---
DATE OF DISCHARGE: 06/16/2018 HOSPITAL COURSE: The patient is an 83-year-old female patient who was transferred from [facility] as she has very difficult vascular access. She has markedly swollen upper extremities as multiple attempts were made to a peripheral IV in midline or PICC line. She was on Xarelto and so there was difficult with resolved bleeding or she had also a superimposed infection and therefore, I continued her Zyvox and Levaquin and after speaking with the family, a decision was made to put a power line in her tunnel to the right internal jugular as she has always had difficulty with vascular access. She was treated with IV Zyvox and Levaquin and was switched eventually to oral. She has had a low air loss mattress and was seen by the wound care team for her bilateral gluteal decubitus ulcer as well as multiple wounds in her upper extremities and as she remained stable, a decision was made to transfer her back to [place] to continue with oral antibiotic for the next 5 days, continue with wound care and nutritional support. PHYSICAL EXAMINATION: GENERAL: When I examined her, she was resting slightly propped up in bed, in no apparent respiratory distress, pale, but no jaundice, cyanosis, or thyromegaly. No jugular venous distension. No limb edema. VITAL SIGNS: Her heart rate was 79, blood pressure was 103/37, temperature was 97.6, respiratory rate was 20, and oxygen saturation was 99% on 2 liters of oxygen. HEAD, EYES, EARS, NOSE AND THROAT: Showed normocephalic, atraumatic. NECK: Supple. HEART: Showed normal first and second heart sounds. No gallop, rub or murmur. CHEST: Clear to auscultation. No crepitation or rhonchi. ABDOMEN: Distended, soft, nontender. NEUROLOGIC: She is sleepy, but arousable. All cranial nerves intact. EXTREMITIES: The swelling of her both upper extremities is decreasing and she is able to move, especially her left upper extremity to much good extent than right upper extremity. When she is mostly bedbound, she has bilateral gluteal decubitus ulcer. She has multiple wounds in both upper extremities covered with dressing. Her intake over the last 24 hours was 800, output was 2000. LABORATORY DATA: Her most recent lab work as of this morning showed a white cell count 7800, hemoglobin 8.5, hematocrit 27, MCV 88 and platelet count of 117,000. Her chemistry showed a serum sodium 136, potassium 3.7, chloride 95, bicarbonate 36, anion gap of 5, BUN 17, creatinine 0.9, estimated GFR was 59 mL per minute. Her glucose was 208, calcium was 8.4. Total bilirubin, AST, ALT, alkaline phosphatase were normal. Total protein was 5.5, albumin was 2.6. FINAL DISCHARGE DIAGNOSES: 1. Encephalopathy, multifactorial, resolved. 2. Multiple wounds in her dorsal aspect of both upper extremities as well as bilateral gluteal decubitus ulcer. 3. Severe protein calorie malnutrition, serum albumin is only 2.6. 4. Crohn's disease. 5. Deep vein thrombosis and pulmonary embolism. 6. Recurrent urinary tract infections. 7. Depression. 8. Degenerative disk disease as well as L4 compression fracture. MAULIK MOROCHO MD DR: JAVID/cortez JOB#: [id number] / [id number]
[2018-06-16 12:23] LABS: % LYMPHS 9 % (24-48); % MONOS 7 % (0-10); % SEGS 84 % (35-66)
[2018-06-16 12:24] LABS: ANISOCYTOSIS MARKED; PLT ESTIMATE DECREASED (ADEQUATE)
[2018-06-16 12:25] LABS: HYPOCHROMIA PRESENT
--- NOTE | 2018-06-16 13:45 | NUR ---
Pt discharged to [place] per stretcher and transport services. Report called to Lexi at facility. Reviewed diet, activity, medications, IV line in right chest and care. Skin concerns and follow up. Son notified of transfer. All verbalized understanding.
[2018-06-19] MEDS ORDERED: ERGOCALCIFEROL (VITAMIN D2) 50,000 UNIT CAPSULE. PO SCH (09:00)
== END 2018-06-16 13:45 | disposition home or self-care (01) | DRG 579 ==
LOC: 6 SOUTH 15:30
PROVIDERS: ADMIT Internal Medicine; ATTEND Internal Medicine
PROC: 0JH63XZ Insertion of Tunneled Vascular Access Device into Chest Subcutaneous Tissue and Fascia, Percutaneous Approach (ICD-10-PCS; principal; 2018-06-15)
PROC: 02HV33Z Insertion of Infusion Device into Superior Vena Cava, Percutaneous Approach (ICD-10-PCS; 2018-06-15)
PROC: B548ZZA Ultrasonography of Superior Vena Cava, Guidance (ICD-10-PCS; 2018-06-15)
PROC: B5181ZA Fluoroscopy of Superior Vena Cava using Low Osmolar Contrast, Guidance (ICD-10-PCS; 2018-06-15)
DX: L03.114 Cellulitis of left upper limb (principal); E43 Unspecified severe protein-calorie malnutrition; G93.40 Encephalopathy, unspecified; K50.90 Crohn's disease, unspecified, without complications; N39.0 Urinary tract infection, site not specified; M48.56XA Collapsed vertebra, not elsewhere classified, lumbar region, initial encounter for fracture; L03.113 Cellulitis of right upper limb; L89.329 Pressure ulcer of left buttock, unspecified stage; L89.319 Pressure ulcer of right buttock, unspecified stage; Z87.440 Personal history of urinary (tract) infections; M51.36 Other intervertebral disc degeneration, lumbar region; E86.0 Dehydration; M19.90 Unspecified osteoarthritis, unspecified site; F32.9 Major depressive disorder, single episode, unspecified; Z88.0 Allergy status to penicillin; Z86.711 Personal history of pulmonary embolism; Z86.718 Personal history of other venous thrombosis and embolism; Z87.01 Personal history of pneumonia (recurrent); Z90.49 Acquired absence of other specified parts of digestive tract; Z88.6 Allergy status to analgesic agent; Z88.1 Allergy status to other antibiotic agents; Z88.2 Allergy status to sulfonamides; Z82.49 Family history of ischemic heart disease and other diseases of the circulatory system; Z82.3 Family history of stroke; Z80.9 Family history of malignant neoplasm, unspecified; Z79.899 Other long term (current) drug therapy; Z68.35 Body mass index [BMI] 35.0-35.9, adult
CPT/HCPCS: 36415; 36558; 36600; 71045; 76937; 77001; 80053; 85007; 85025; 87641; C1751; C1892; J1720; J7042; Q0144; Q0162; 97110; 97530; 97535

== ENCOUNTER 2018-06-16 20:56 | Emergency (ER) | payer MEDICARE, OTHER ==
[~2018-06-16] VITALS: Ht 149.9 cm; Wt 90.7 kg
[~2018-06-16 20:56] MED LIST changes: +ASCO500C9 PO; +CHOL500021 PO; +FLUT9.9S NS; +GABA300C18 PO; +LACT1WAF PO; +LEVO500T59 PO; +LINE600T PO; +PANT20TA2 PO; +POLY17PO29 PO; +RIVA15TA PO
[2018-06-16 21:00] VITALS: BP 134/65
--- NOTE | 2018-06-16 21:40 | RAD ---
Indication:check PICC placement TECHNIQUE:Portable AP chest X-ray COMPARISON:06/13/2018 FINDINGS: Right-sided central venous catheter is seen with its tip in the SVC. Heart is normal in size. Lungs are hyperinflated with coarse bronchial markings. Mild horizontal wedge-shaped opacity seen in the right lower lobe. No pneumothorax or pleural effusion. Visualized bony thorax is within normal limits. IMPRESSION: Findings of COPD with superimposed peribronchial edema or bronchitis. Electronically signed by: Ambrocio Munson DO (06/16/2018 9:38 PM) [facility]
--- NOTE | 2018-06-16 21:55 | PHYS DOC ---
Adult General Chief Complaint Chief Complaint: OTHER COMPLAINTS [facility] Patient is a 83 year old female who presents with a need for a dressing change to her PICC line. She denies any other problems. Review of Systems Review of Systems Constitutional: Denies fever or chills [] Eyes: Denies change in visual acuity, redness, or eye pain [] HENT: Denies nasal congestion or sore throat [] Respiratory: Denies cough or shortness of breath [] Cardiovascular: No additional information not addressed in HPI [] GI: Denies abdominal pain, nausea, vomiting, bloody stools or diarrhea [] : Denies dysuria or hematuria [] Musculoskeletal: Denies back pain or joint pain [] Integument: Denies rash or skin lesions [] Neurologic: Denies headache, focal weakness or sensory changes [] Endocrine: Denies polyuria or polydipsia [] All other systems were reviewed and found to be within normal limits, except as documented in this note. Allergies Allergies Allergies Coded Allergies Type Severity Reaction Last Updated Verified Penicillins Allergy Intermediate 05/13/17 Yes Sulfa (Sulfonamide Antibiotics) Allergy Intermediate 05/13/17 Yes aspirin Allergy Intermediate 05/13/17 Yes cefdinir Allergy Intermediate 05/13/17 Yes ciprofloxacin Allergy Intermediate tolerates Levaquin 06/12/18 Yes tramadol Allergy Intermediate 05/13/17 Yes Physical Exam Physical Exam Constitutional: Well developed, well nourished, no acute distress, non-toxic appearance. [] Cardiovascular:Heart rate regular rhythm, no murmur [] Lungs & Thorax: Bilateral breath sounds clear to auscultation [] Abdomen: Bowel sounds normal, soft, no tenderness, no masses, no pulsatile masses. [] Skin: PICC line in place with no functional problems, dressing has dried blood underneath Neurologic: Alert and oriented X 3, normal motor function, normal sensory function, no focal deficits noted. [] Psychologic: Affect normal, judgement normal, mood normal. [] EKG EKG [] Radiology/Procedures Radiology/Procedures [] Course & Med Decision Making Course & Med Decision Making Pertinent Labs and Imaging studies reviewed. (See chart for details) []Dressing changed with no complications. Dragon Disclaimer Dragon Disclaimer This electronic medical record was generated, in whole or in part, using a voice recognition dictation system. Departure Departure Impression: Primary Impression: Dressing change Disposition: 01 HOME, SELF-CARE Condition: STABLE Referrals: MAULIK MOROCHO MD (PCP) Patient Instructions: PICC Home Guide Additional Instructions: Keep the PICC line clean and the dressing intact. Follow-up for dressing changes as needed. RANDALL CASTANEDA APRN Jun 16, 2018 21:54
== END 2018-06-16 22:08 | disposition home or self-care (01) ==
LOC: ER 20:56
DX: Z45.2 Encounter for adjustment and management of vascular access device (principal); Z88.0 Allergy status to penicillin; Z88.1 Allergy status to other antibiotic agents; Z88.6 Allergy status to analgesic agent; Z88.2 Allergy status to sulfonamides; Z88.8 Allergy status to other drugs, medicaments and biological substances
CPT/HCPCS: 71045; 99283; 99284